=== PATIENT | female | born 1965 | race Caucasian/White ===

== ENCOUNTER 2018-09-11 10:06 | Emergency (ER) | payer OTHER ==
[~2018-09-11] VITALS: Ht 165.1 cm; Wt 81.6 kg
[~2018-09-11 10:06] MED LIST: ATE50T PO; DILT240C PO; LEVO150T10 PO; ROSU10TA16 PO
[2018-09-11] MEDS ORDERED: SODIUM CHLORIDE 0.9% 1,000 ML IV ONE ×2 (10:26)
[2018-09-11 10:59] LABS: Basophils # (auto) 0 uL; Basophils % (auto) 0.3 % (0.0-2.0); Eosinophils # (auto) 0.1 uL; Hemoglobin 7.9 g/dL (12.2-16.2); Lymphocytes # (auto) 0.9 uL; Neutrophils # (auto) 5.2 uL; Red Cell Distribution Width 14.3 % (11.8-14.3)
[2018-09-11 11:00] LABS: Albumin 2.7 g/dL (3.4-5.0); Calcium 7.9 mg/dL (8.5-10.1); Magnesium 2.2 mg/dL (1.6-2.6)
[2018-09-11] MEDS ORDERED: D5W/SOD CHLO 0.9% 1,000 ML IV ONE (11:00)
[2018-09-11 11:01] LABS: Eosinophils % (auto) 1.1 % (0.0-7.0); Hematocrit 24.2 % (36.0-46.0); Lymphocytes % (auto) 13.9 % (10.0-50.0); Mean Corpuscular Hemoglobin 31.5 pg (28.0-32.0); Mean Corpuscular Hgb Conc. 32.7 g/dL (32.0-36.0); Mean Corpuscular Volume 96.3 fL (80.0-100.0); Monocytes # (auto) 0.5 uL; Monocytes % (auto) 6.9 % (0.0-12.0); Neutrophils % (auto) 77.8 % (37.0-80.0); Platelet Count (auto) 166 10^3/uL (140-450); Red Blood Cells 2.52 10^6/uL (4.0-5.20); White Blood Cell 6.7 10^3/uL (4.4-10.8)
[2018-09-11 11:03] LABS: BUN/Creatinine Ratio 10.1; Bilirubin, Total 0.2 mg/dL (0.2-1.0); Total Protein 6.1 g/dL (6.4-8.2)
[2018-09-11 13:26] LABS: Urine Bacteria FEW /hpf (None Seen); Urine Blood 1+ /uL (Negative); Urine Hyaline Cast FEW /lpf (0 - 2); Urine WBC 429 /hpf (0 - 5); Urine WBC Clumps PRESENT /hpf (None Seen)
[2018-09-11] MEDS ORDERED: PIPERACILLIN-TAZOB 3.375GM 100 ML IV ONE (14:00)
[2018-09-11] MEDS ORDERED: NITROFURANTOIN (MONO) 100 mg CAP PO ONE (14:00)
[2018-09-11 14:15] VITALS: BP 180/90
== END 2018-09-11 14:16 | disposition home or self-care (01) ==
LOC: EDBD 10:06 → ER 10:06
DX: E10.649 Type 1 diabetes mellitus with hypoglycemia without coma (principal); N39.0 Urinary tract infection, site not specified; L03.032 Cellulitis of left toe; R07.9 Chest pain, unspecified; Z79.4 Long term (current) use of insulin; Z79.899 Other long term (current) drug therapy
CPT/HCPCS: 29515; 36415; 71045; 73700; 80053; 81001; 82962; 83735; 84484; 85025; 87086; 93005; 96365; 96366; 96368; 99284; J2543; 96367; J7042